=== PATIENT | male | born 1975 | race Native Hawaiian/Other Pacific Islander ===

== ENCOUNTER 2018-04-25 05:59 | Day surgery (SDC) | payer MEDICAID ==
[2018-04-25] MEDS ORDERED: Clindamycin 600mg/50ml NS 600 MG/50 ML BAG IVPB ONE (06:47)
[2018-04-25] MEDS ORDERED: Acetaminophen-Codeine 300/30 mg Tab PO PRN (08:07)
[2018-04-25] MEDS ORDERED: Dextrose 5%/0.45% NS 1,000 ML IV SCH (08:15)
[2018-04-25] MEDS ORDERED: Lactated Ringer's 500 ML IV ONE (08:15)
[2018-04-25] MEDS ORDERED: Propofol 10 mg/ml Inj (20 ML) ONE (08:23)
[2018-04-25] MEDS ORDERED: Succinylcholine Chloride 20 mg/ml Syr (5 ml) IV ONE (08:23)
[2018-04-25] MEDS ORDERED: White Petrolatum/Mineral Oil Ophth Oint(3.5 gm) ONE (08:23)
[2018-04-25] MEDS ORDERED: Lactated Ringer's 1,000 ML IV SCH (09:15)
[2018-04-25] MEDS ORDERED: Dextrose 5%/0.45% NS 1,000 ML IV ONE ×2 (10:00→10:15)
[2018-04-25 10:26] VITALS: TEMP 97.2
[2018-04-25 11:26] VITALS: BP 126/81; PULSE 93; RESP 16; O2SAT 97
--- NOTE | 2018-04-25 20:34 | OP ---
PROCEDURE DATE: 04/25/2018 PREOPERATIVE DIAGNOSIS: Left vocal cord mass. POSTOPERATIVE DIAGNOSIS: Left vocal cord mass. PROCEDURE: Micro direct laryngoscopy with biopsy. SURGEON: Manny Tafoya MD. SIGNIFICANT FINDINGS: Left vocal cord mass. DESCRIPTION OF PROCEDURE: The patient was brought into the room, placed in supine position. Anesthesia was initiated through an ET tube. Shoulder roll was placed, neck extended. The patient was draped in the usual manner. Direct laryngoscope was inserted into the oral cavity after tooth guard was placed over the upper teeth to protect them. The direct laryngoscope was passed through the oropharynx and hypopharynx. The pharyngeal mcqueen, base of the tongue, vallecula, epiglottis, AE folds, false cords, true cords, arytenoids, pyriform sinuses were brought into the view. Tonsillar mass was noted in the left vocal cord. The direct laryngoscope was suspended on the [employer] production technician the usual manner. Microscope was brought into the position to view the left vocal cord mass. Biopsies were taken. Bleeding was controlled with irrigation. The microscope was taken out of position. The direct laryngoscope was taken out of position and removed. The scope was removed. The patient was taken off anesthesia and taken to the recovery room in stable manner. Manny Tafoya MD
== END 2018-04-25 11:00 | disposition home or self-care (01) ==
LOC: C.SDS 05:59
PROVIDERS: ATTEND Otolaryngology
DX: J38.3 Other diseases of vocal cords (principal)
CPT/HCPCS: 31536; 88305; J2704; J3010; J7042; J7120